=== PATIENT | female | born 1975 | race Caucasian/White ===

== ENCOUNTER → 2018-12-27 | Day surgery (SDC) | payer OTHER ==
[~2018-12-27] MED LIST: ACET325T9 PO; BUPIVAC MPF-EPI 0.5%-1:200000 30 ML VIAL. ONE; DEXAMETHASONE SOD PHOS 4 MG/ML VIAL ONE; ETHI1TAB12 PO; GLYCOPYRROLATE 1 MG/5 ML VIAL. ONE; HYDR-2145 PO; HYDR-3164 PO; HYDROcodone/APAP 5/325MG 1 TAB TABLET PO ONE; HYDROmorphone 2 MG/ML VIAL IV PRN; IBUP200T44 PO; IBUPROFEN 400 MG TABLET. PO PRN; IV RINGERS,LACTATED 1000ML 1,000 ML IV SCH; KETOROLAC 30 MG/ML VIAL. IV ONE; LIDOCAINE 1% PF 2 ML VIAL. ID PRN; LIDOCAINE 2% PF 5 ML VIAL. ONE; MIDAZOLAM HCL/PF 2 MG/2 ML VIAL. ONE; MORPHINE SULFATE 2 MG/ML VIAL. IV PRN; MULT1TAB52 PO; NEOSTIGMINE METHYLSULFATE 5 MG/5 ML SYRINGE. ONE; ONDANSETRON PF 4 MG/2 ML VIAL. IV PRN; ONDANSETRON PF 4 MG/2 ML VIAL. ONE; OXYTOCIN 10 UNIT/ML VIAL. ONE; PROCHLORPERAZINE 10 MG/2 ML VIAL. IV PRN; PROPOFOL 20 ML IV ONE; ROCURONIUM 50 MG/5 ML VIAL. ONE; SCOPOLAMINE 1.5MG PATCH. TD ONE; SEVOFLURANE 61 TO 120 MINUTES. IH ONE; ceFAZolin 2GM PREMIX 2 GM/50 ML BAG IV ONE; diphenhydrAMINE 50 MG/ML VIAL ONE; fentaNYL PF VIAL 100 MCG/2 ML VIAL IV PRN; fentaNYL PF VIAL 100 MCG/2 ML VIAL ONE; miSOPROStol 200 MCG TABLET ONE
[2018-12-27 09:42] LABS: U PREG PATIENT NEGATIVE (NEG)
--- NOTE | 2018-12-27 11:02 | PDOC ---
BRIEF OPERATIVE NOTE Pre-Op Diagnosis AUB Multiparous desires permanent sterilization Post-Op Diagnosis Lap BTL with filshie clips Dx hysteroscopy D and C Failed Novasure ablation Surgeon Kenya It Sales Executive None Anesthesia Type: General Blood Loss 20cc Specimens Obtained EMC Complications None JAYNE MURRIETA MD Dec 27, 2018 11:02
[2018-12-27] MEDS: fentaNYL PF VIAL 100 MCG/2 ML VIAL IV PRN ×2 (11:25→11:34)
[2018-12-27 13:14] VITALS: BP 135/65
--- NOTE | 2018-12-29 09:10 | PATHOLOGY ---
[facility] Accession Number: [id number] . 01 Material submitted: . endometrium - ENDOMETRIAL CURETTING . 01 Clinical history: . AUB . 02 Diagnosis: Endometrial curettings: - Inactive/atrophic endometrium. - Segments of squamous mucosa and focally polypoid segments of endocervical mucosa showing focal microglandular hyperplasia. (JPM:[facility] 12/28/2018) P/12/29/2018 . 02 Comment: There is no evidence of endometrial hyperplasia or malignancy. (JPM:[facility] 12/28/2018) . 02 Electronically signed: . Jeffery Roe MD, Pathologist NPI- [id number] . 01 Gross description: . Received in formalin labeled "Nadya, Farzaneh, endometrial curettings" is soft, mucoid, and hemorrhagic winston-brown tissue measuring 2.1 x 1.5 x 0.2 cm which is entirely submitted in A1. (SDY; 12/27/2018) SYU/SYU . 02 Pathologist provided ICD-10: N93.9 . 02 CPT . 434995 Specimen Comment: A courtesy copy of this report has been sent to Specimen Comment: [phone]. Specimen Comment: Report sent to Performed at: 01 [facility] [address], [place] [id number] MD Jalil Osman MD Phone: [phone] Performed at: 02 [facility] [address] [place], [place] [id number] MD Jeffery Roe MD Phone: [phone]
--- NOTE | 2019-01-02 18:05 | OP ---
DATE OF SURGERY: 12/27/2018 PREOPERATIVE DIAGNOSES: 1. Multiparous, desired permanent sterilization. 2. Abnormal uterine bleeding. POSTOPERATIVE DIAGNOSES: 1. Multiparous, desired permanent sterilization. 2. Abnormal uterine bleeding. PROCEDURE: 1. Laparoscopic bilateral tubal ligation with Filshie clips. 2. Dilatation and curettage. 3. Failed NovaSure ablation. SURGEON: Edu Zambrano M.D. MANAGER OF CASE MANAGEMENT: None. ANESTHESIA: General. ESTIMATED BLOOD LOSS: 30 mL. FLUIDS: Crystalloid. SPECIMENS: Endometrial curettings. COMPLICATIONS: Failed NovaSure ablation. CONDITION: Stable. DESCRIPTION OF PROCEDURE: After risks, benefits, indications, alternatives and expectations discussed in detail with the patient, the patient brought to OR theater, placed in the dorsal lithotomy position in Osvaldo stirrups. After adequate general anesthesia, the patient was prepped and draped in a sterile manner. A sponge stick was placed in the vaginal vault. Attention was then turned to the anterior abdominal wall. An infraumbilical incision was made sharply with a scalpel. Through this, a 5 mm disposable trocar was placed via the Visiport without any complications. Pneumoperitoneum was created. Another incision was made suprapubically where other 8 mm disposable trocar was placed. The patient was placed in Trendelenburg. First, right tube was identified, followed to its fimbriated end. Approximately 1-2 cm from the cornu, Filshie clip was placed without any difficulty. Same procedure was carried out on the opposite side. Pneumoperitoneum was allowed to dissipate after all instruments were removed. The trocar sleeves were removed. The incisions were reapproximated with surgical glue. Attention was then turned to the vaginal part of the procedure after the incisions were infiltrated with 0.5% Marcaine with epinephrine. Sponge stick was removed. Posterior weighted speculum was placed in the vaginal vault. Cervix is identified and grasped with single tooth tenaculum. The cervix and uterine cavity were sounded. The total length was 9 cm, total length of uterine cavity was 6 cm, with a cervical length of 3. Cervix was dilated up to size 8 dilator. Sharp curettage was then performed. Endometrium was placed on Telfa sponge and handed off the operative field. The NovaSure device was then placed, set at 6 cm as uterine length and the width was approximately 2.7. There was some difficulty getting the NovaSure device to open up the past 2.6, which is the minimal distance. Testing for complete air seal was unable to continue with the device we had, so we changed devices, also changed the CO2 cartridge with a new device the same thing occurred secondary to equipment failure, so this part of the procedure was not performed. The hysteroscope was once again placed as it has been placed before the dilatation and curettage. The uterine width was greater than 3 cm. The fan on the NovaSure device was not deploying correctly, that is why air seal was not tight, was never found out. The procedure was then terminated. Vaginal vault was wiped free of any tissue or blood. CO2 ____ was removed. Puncture sites were hemostatic. Posterior weighted speculum was removed. Sponge, needle and instrument counts were correct x 2 per nursing staff. The dressings were put on the abdominal incisions, and the patient went to postop anesthesia recovery in stable condition. EDU ZAMBRANO MD DR: CASSANDRA/val JOB#: [id number] / [id number]
== END ==
LOC: SURG 08:13
PROVIDERS: ATTEND Specialist
DX: Z30.2 Encounter for sterilization (principal); N93.9 Abnormal uterine and vaginal bleeding, unspecified
CPT/HCPCS: 58558; 58671; 81025; 88305; A7015; J0696; J0780; J1100; J1200; J1885; J2001; J2250; J2270; J2405; J2704; J2710; J3010; J3490; J7030; J7120; J2590

== ENCOUNTER 2019-01-23 06:00 | Observation (INO) | payer OTHER ==
[2019-01-23] VITALS (7 sets, daily range): BP systolic 110–137; BP diastolic 66–83
[~2019-01-23] VITALS: Ht 160 cm; Wt 91.6 kg
[~2019-01-23 06:00] MED LIST changes: -BUPIVAC MPF-EPI 0.5%-1:200000 30 ML VIAL. ONE; -DEXAMETHASONE SOD PHOS 4 MG/ML VIAL ONE; -GLYCOPYRROLATE 1 MG/5 ML VIAL. ONE; -HYDROcodone/APAP 5/325MG 1 TAB TABLET PO ONE; -HYDROmorphone 2 MG/ML VIAL IV PRN; -IBUPROFEN 400 MG TABLET. PO PRN; -IV RINGERS,LACTATED 1000ML 1,000 ML IV SCH; -KETOROLAC 30 MG/ML VIAL. IV ONE; -LIDOCAINE 1% PF 2 ML VIAL. ID PRN; -LIDOCAINE 2% PF 5 ML VIAL. ONE; -MIDAZOLAM HCL/PF 2 MG/2 ML VIAL. ONE; -MORPHINE SULFATE 2 MG/ML VIAL. IV PRN; -NEOSTIGMINE METHYLSULFATE 5 MG/5 ML SYRINGE. ONE; -ONDANSETRON PF 4 MG/2 ML VIAL. IV PRN; -ONDANSETRON PF 4 MG/2 ML VIAL. ONE; -OXYTOCIN 10 UNIT/ML VIAL. ONE; -PROCHLORPERAZINE 10 MG/2 ML VIAL. IV PRN; -PROPOFOL 20 ML IV ONE; -ROCURONIUM 50 MG/5 ML VIAL. ONE; -SCOPOLAMINE 1.5MG PATCH. TD ONE; -SEVOFLURANE 61 TO 120 MINUTES. IH ONE; -ceFAZolin 2GM PREMIX 2 GM/50 ML BAG IV ONE; -diphenhydrAMINE 50 MG/ML VIAL ONE; -fentaNYL PF VIAL 100 MCG/2 ML VIAL IV PRN; -fentaNYL PF VIAL 100 MCG/2 ML VIAL ONE; -miSOPROStol 200 MCG TABLET ONE
[2019-01-23] MEDS ORDERED: ESTROGENS, CONJ VAGINAL CREAM 30GM TUBE. ONE (06:25)
[2019-01-23] MEDS ORDERED: BUPIVAC MPF-EPI 0.5%-1:200000 30 ML VIAL. ONE (06:25)
[2019-01-23] MEDS ORDERED: fentaNYL PF VIAL 100 MCG/2 ML VIAL IV PRN (07:00)
[2019-01-23] MEDS ORDERED: IV RINGERS,LACTATED 1000ML 1,000 ML IV SCH (07:00)
[2019-01-23] MEDS ORDERED: PROCHLORPERAZINE 10 MG/2 ML VIAL. IV PRN (07:00)
[2019-01-23] MEDS ORDERED: LIDOCAINE 1% PF 2 ML VIAL. ID PRN (07:00)
[2019-01-23] MEDS ORDERED: ONDANSETRON PF 4 MG/2 ML VIAL. IV PRN ×2 (07:00→11:00)
[2019-01-23] MEDS ORDERED: SCOPOLAMINE 1.5MG PATCH. TD ONE (07:15)
[2019-01-23] MEDS ORDERED: ROCURONIUM 50 MG/5 ML VIAL. ONE ×2 (07:23→09:14)
[2019-01-23] MEDS ORDERED: LIDOCAINE 2% PF 5 ML VIAL. ONE (07:23)
[2019-01-23] MEDS ORDERED: PROPOFOL 20 ML IV ONE (07:23)
[2019-01-23] MEDS ORDERED: DEXAMETHASONE SOD PHOS 4 MG/ML VIAL ONE (07:23)
[2019-01-23] MEDS ORDERED: fentaNYL PF VIAL 100 MCG/2 ML VIAL ONE ×3 (07:23→11:26)
[2019-01-23] MEDS ORDERED: ONDANSETRON PF 4 MG/2 ML VIAL. ONE (07:23)
[2019-01-23] MEDS ORDERED: MIDAZOLAM HCL/PF 2 MG/2 ML VIAL. ONE (07:24)
[2019-01-23 07:28] LABS: U PREG PATIENT NEGATIVE (NEG)
[2019-01-23] MEDS ORDERED: INDIGOTINDISULFONATE SODIUM 40 MG/5 ML AMPUL. IV ONE (07:30)
[2019-01-23] MEDS ORDERED: metroNIDAZOLE 0.75% VAGINAL 1 APP TUBE VG ONE (07:45)
[2019-01-23 07:58] LABS: BASO % 1 % (0-3); EOS # 0.2 x10^3/uL (0.0-0.7); EOS % 2 % (0-3); HEMATOCRIT 37.8 % (36.0-47.0); HEMOGLOBIN 13.1 g/dL (12.0-15.5); LYMPH # 1.9 x10^3/uL (1.0-4.8); LYMPH % 24 % (24-48); MEAN CORPUSCULAR HEMOGLOBIN 29 pg (25-35); MEAN CORPUSCULAR HGB CONC 35 g/dL (31-37); MEAN CORPUSCULAR VOLUME 84 fL (79-100); MONO # 0.6 x10^3/uL (0.0-1.1); MONO % 8 % (0-9); NEUT # 5.1 x10^3uL (1.8-7.7); NEUT % 65 % (31-73); PLATELET COUNT 276 x10^3/uL (140-400); RED BLOOD COUNT 4.51 x10^6/uL (3.50-5.40); RED CELL DISTRIBUTION WIDTH 13.5 % (11.5-14.5); WHITE BLOOD COUNT 7.8 x10^3/uL (4.0-11.0)
[2019-01-23] MEDS ORDERED: NEOSTIGMINE METHYLSULFATE 5 MG/5 ML SYRINGE. ONE (08:40)
[2019-01-23] MEDS ORDERED: GLYCOPYRROLATE 1 MG/5 ML VIAL. ONE (08:41)
[2019-01-23] MEDS ORDERED: diphenhydrAMINE 50 MG/ML VIAL ONE (08:47)
[2019-01-23] MEDS ORDERED: KETOROLAC 30 MG/ML INJ FOR OR. INJ ONE (08:47)
[2019-01-23] MEDS ORDERED: ceFAZolin 2GM PREMIX 2 GM/50 ML BAG IV ONE (09:00)
[2019-01-23] MEDS ORDERED: SEVOFLURANE > 120 MINUTES. IH ONE (09:02)
--- NOTE | 2019-01-23 10:56 | PDOC ---
BRIEF OPERATIVE NOTE Pre-Op Diagnosis AUB Post-Op Diagnosis Same Procedure Performed [facility] BS Surgeon Kenya Hospitality Host None Anesthesia Type: General Blood Loss 150cc Specimens Obtained None Findings Dictated Complications None Operative Note Dictated JAYNE MURRIETA MD Jan 23, 2019 10:56
[2019-01-23] MEDS ORDERED: 0.9 % SODIUM CHLORIDE 10 ML DISP.SYRIN. IV PRN (11:00)
[2019-01-23] MEDS ORDERED: CALCIUM CARBONATE 500 MG TAB.CHEW PO PRN (11:00)
[2019-01-23] MEDS ORDERED: MAG HYDROX/ALUMINUM HYD/SIMETH 30 ML ORAL.SUSP PO PRN (11:00)
[2019-01-23] MEDS ORDERED: NALOXONE 0.4 MG/ML VIAL. IV PRN (11:00)
[2019-01-23] MEDS ORDERED: diphenhydrAMINE 50 MG/ML VIAL IV PRN (11:00)
[2019-01-23] MEDS ORDERED: ceFAZolin SODIUM 1 GM in IV DEXTROSE 5% 50 ML IV SCH (11:00)
[2019-01-23] MEDS ORDERED: oxyCODONE/APAP 5/325 1 TAB TABLET PO PRN (11:00)
[2019-01-23] MEDS ORDERED: diphenhydrAMINE HCL 25 MG CAPSULE PO PRN (11:00)
[2019-01-23] MEDS ORDERED: HYDROmorphone 2 MG/ML VIAL IV PRN (11:00)
[2019-01-23] MEDS ORDERED: DEXTROSE 50% 25 GM / 50ML DISP.SYRIN. IV PRN (11:00)
[2019-01-23] MEDS ORDERED: ZOLPIDEM 5 MG TABLET. PO PRN (11:00)
[2019-01-23] MEDS: fentaNYL PF VIAL 100 MCG/2 ML VIAL IV PRN ×2 (11:29→11:39)
--- NOTE | 2019-01-23 11:31 | OP ---
DATE OF SURGERY: 01/23/2019 PREOPERATIVE DIAGNOSIS: Abnormal uterine bleeding. POSTOPERATIVE DIAGNOSIS: Abnormal uterine bleeding. PROCEDURE: Laparoscopic assisted vaginal hysterectomy, bilateral salpingectomy. Intraoperative consults by Dr. Bowser to help with retrieval of Filshie clip. ESTIMATED BLOOD LOSS: 150 mL. FLUIDS: Crystalloid. SPECIMENS: Uterus, bilateral oviducts with bilateral tissue clips. COMPLICATIONS: None. CONDITION: Stable. DESCRIPTION OF PROCEDURE: After risks, benefits, indication, alternatives, and expectations discussed in detail with the patient, the patient was brought to the OR theater, placed in dorsal lithotomy position in Osvaldo stirru. Uterine manipulator was placed transvaginally in the cervical os. Attention was then turned to the anterior abdominal wall. A small vertical infraumbilical incision was made sharply with a scalpel. Through this via the Visiport, a 5 mm disposable trocar was placed. Two lateral trocars on the left, 5 mm trocars were also placed using direct visualization. Attention was first turned with the right tube. Prior to this, adhesions of sigmoid colon and to the dome of the bladder were taken down. The right tube was taken down to its cornu, transected through the mesosalpinx through the round ligament to the broad ligament in the Mackenrodt ligament, good hemostasis was assured. The left tube at this point was avulsed from its uterus attachment. Same procedure was carried out on the right side. Attention was then turned to the vaginal aspect of the procedure. Cervix was infiltrated with 0.5% Marcaine with epinephrine, circumscribed with a scalpel. Posterior cul-de-sac was entered sharply with Fontenot scissors. Anterior cul-de-sac was entered in usual fashion with reflecting the bladder, dry Ray-Cash and entering the anterior cul-de-sac sharply with Metzenbaum scissors. Curved [place] was placed in the space to displace the bladder superior and a long weighted speculum was placed in the posterior cul-de-sac to displace the rectum inferior. The remaining attachments of the uterus were taken down with clamp, cut, tie manner and the uterus handed off the operative field. The cuff was reapproximated with 0 Vicryl pop-offs in an interrupted fashion. On going to the abdominal part of the procedure, a pneumoperitoneum was once again created. Posterior cul-de-sac was irrigated copiously with warm normal saline. Good hemostasis was assured. The left tube Filshie clip was difficult to find, but with the assistant news director of Dr. Bowser was retrieved and brought out through 11-mm port that was placed in the 1-5 mm trocar sites on the left of the umbilicus. Good hemostasis was assured. Ureters peristalsing bilaterally. Pneumoperitoneum was allowed to dissipate after all laparoscopic instruments were removed, all trocar sleeves were removed. The incisions were repaired with Dermabond. Sponge, needle and instrument counts were correct x 2 per nursing staff. JAYNE MURRIETA MD DR: CASSANDRA/val JOB#: [id number] / [id number]
[2019-01-23] MEDS ORDERED: OPIUM/BELLADONNA 30/16.2MG SUPP.RECT. PR PRN (13:45)
[2019-01-23] MEDS: KETOROLAC 30 MG/ML VIAL. IV PRN (13:47)
[2019-01-23] MEDS: HYDROcodone/APAP 5/325MG 1 TAB TABLET PO PRN ×2 (13:48→18:55)
[2019-01-23] MEDS: ceFAZolin SODIUM IV Push 1 GM VIAL. IVP SCH (18:55)
[2019-01-23 19:10] LABS: HEMATOCRIT 33.8 % (36.0-47.0); HEMOGLOBIN 11.6 g/dL (12.0-15.5); RED BLOOD COUNT 3.97 x10^6/uL (3.50-5.40); RED CELL DISTRIBUTION WIDTH 13.4 % (11.5-14.5); WHITE BLOOD COUNT 9.8 x10^3/uL (4.0-11.0)
[2019-01-23] MEDS: hydroCHLOROthiazide 25 MG TABLET PO SCH (20:28)
[2019-01-23] MEDS ORDERED: DOCUSATE SODIUM 100 MG CAPSULE. PO SCH (21:00)
[2019-01-23] MEDS: SENNOSIDES/DOCUSATE 8.6/50MG TABLET. PO SCH (21:00)
[2019-01-24] MEDS: HYDROcodone/APAP 5/325MG 1 TAB TABLET PO PRN ×2 (00:55→13:03)
[2019-01-24] MEDS: ceFAZolin SODIUM IV Push 1 GM VIAL. IVP SCH ×2 (00:55→08:39)
[2019-01-24 01:03] VITALS: BP 118/70
[2019-01-24 03:49] LABS: BASO % 0 % (0-3); EOS % 0 % (0-3); HEMOGLOBIN 10.9 g/dL (12.0-15.5); LYMPH # 1.8 x10^3/uL (1.0-4.8); LYMPH % 17 % (24-48); MEAN CORPUSCULAR HEMOGLOBIN 30 pg (25-35); MEAN CORPUSCULAR HGB CONC 35 g/dL (31-37); MEAN CORPUSCULAR VOLUME 84 fL (79-100); MONO # 0.7 x10^3/uL (0.0-1.1); MONO % 7 % (0-9); NEUT # 7.9 x10^3uL (1.8-7.7); NEUT % 76 % (31-73); PLATELET COUNT 215 x10^3/uL (140-400); RED BLOOD COUNT 3.68 x10^6/uL (3.50-5.40); RED CELL DISTRIBUTION WIDTH 13.6 % (11.5-14.5); WHITE BLOOD COUNT 10.4 x10^3/uL (4.0-11.0)
[2019-01-24 04:04] LABS: CALCIUM 8.4 mg/dL (8.5-10.1); CREATININE 0.8 mg/dL (0.6-1.0); GFR 77.6; POTASSIUM 3.5 mmol/L (3.5-5.1)
[2019-01-24 07:00] VITALS: BP 118/70
[2019-01-24] MEDS: hydroCHLOROthiazide 25 MG TABLET PO SCH (08:38)
[2019-01-24] MEDS: KETOROLAC 30 MG/ML VIAL. IV PRN (08:49)
[2019-01-24] MEDS: SENNOSIDES/DOCUSATE 8.6/50MG TABLET. PO SCH (09:00)
[2019-01-24] MEDS: SIMETHICONE 80 MG TAB.CHEW PO PRN ×2 (09:06→13:02)
[2019-01-24 10:30] VITALS: BP 116/76
[2019-01-24] MEDS ORDERED: MAGNESIUM HYDROXIDE 2,400 MG/30 ML ORAL.SUSP. PO PRN (13:15)
[2019-01-24] MEDS ORDERED: NAPR-514 PO (14:06)
[2019-01-24] MEDS ORDERED: HYDR-3164 PO (14:06)
--- NOTE | 2019-01-24 14:09 | PDOC ---
Provider Note Provider Note pood 1 Doing well No complaints Incision CDI DC home JAYNE MURRIETA MD Jan 24, 2019 14:09
[2019-01-24 14:45] VITALS: BP 115/73
--- NOTE | 2019-01-24 15:27 | DS ---
DATE OF DISCHARGE: 01/24/2019 ADMITTING DIAGNOSIS: Abnormal uterine bleeding. DISCHARGE DIAGNOSIS: Abnormal uterine bleeding. PROCEDURE: Laparoscopic assisted vaginal hysterectomy with bilateral salpingectomy with intraoperative consult by Dr. Robel Bowser for retrieval of the Filshie clip. HOSPITAL COURSE: The patient's hospital course was unremarkable. Initially, there were some problems with getting her pain under control. She was switched to Toradol and Vicodin since she had itching allergy to PERCOCET. On postop day #1, she was stable. She is tolerating regular diet, bowel and bladder was functioning. She is ambulating in the halls without assistance. Her postop H and H was 10.9 and 31, and that is down from 11.6 and 33. Incisions were clean, dry and intact without any signs of infection. DISCHARGE MEDICATIONS: The patient was discharged home with 35 K[place]heloe and 60 Naproxen. DISCHARGE INSTRUCTIONS: The patient was given routine discharge instructions. The patient is to follow up with me in a week. JAYNE MURRIETA MD DR: CASSANDRA/val JOB#: [id number] / [id number]
--- NOTE | 2019-01-24 18:06 | PATHOLOGY ---
[facility] Accession Number: [id number] . 01 Material submitted: . uterus - CERVIX, UTERUS, RIGHT TUBE WITH CLIP, LEFT TUBE, CLIP . 01 Clinical history: . Fibroids. . 02 Diagnosis: Uterus and detached bilateral fallopian tubes, hysterectomy and bilateral salpingectomy: - Chronic cervicitis with focal squamous metaplasia. - Nabothian cysts, small. - Inactive/atrophic endometrium. - Adenomyosis, uterine corpus, subbasal, focal. - Congestion of bilateral fallopian tubes. - Small paratubal cysts. (JPM:[facility] 01/24/2019) [facility] . 02 Comment: There is no evidence of malignancy. (JPM:[facility] 01/24/2019) . 02 Electronically signed: . Jeffery Roe MD, Pathologist NPI- [id number] . 01 Gross description: . Received in formalin labeled "Nadya, Farzaneh, cervix, uterus, right tube with clip, left tube, clip" is a hysterectomy specimen with detached fallopian tubes. The uterus weighs 101 g and measures 10.5 cm from fundus to cervix, 5.5 cm from cornu to cornu, and 5.0 cm from anterior to posterior. The serosa is red-pink with focal hemorrhagic areas and a 2.0 x 1.3 cm surgical defect in the posterior aspect. There is a remnant stump of right fallopian tube attached to the uterus, measuring 2.0 cm in length and 0.6 cm in diameter. The fallopian tube has a metallic clip present, possibly consistent with a sterilization clip. The ectocervix is pink-winston and glistening with a 0.8 cm slitlike cervical os. The uterus is opened to reveal a 5.1 x 2.6 cm endometrial cavity and a 2.3 x 0.9 cm endocervical canal. Upon sectioning, the average endometrial thickness is 0.2 cm and the average myometrial thickness is 2.0 cm. No leiomyomata are identified. The first detached fimbriated fallopian tube does not have a clip present, and measures 4.0 cm in length and 0.5 cm in diameter. The second fallopian tube measures 4.5 cm in length and 0.5 cm in diameter, has a metallic clip present, and does not have a definitive fimbria. Upon sectioning, the cut surfaces display pinpoint lumens. Basket Grader sections of the specimen are submitted as follows: A1 12:00 cervix A2 6:00 cervix A3 outside sales representative serosal defect A4 outside sales representative anterior endomyometrium A5 outside sales representative posterior endomyometrium A6 entire stump of right fallopian tube attached to uterus A7 entire detached fallopian tube without clip A8 entire detached fallopian tube with clip ([facility] 01/23/2019) SYC/SYC . 02 Pathologist provided ICD-10: N72, N88.8, N80.0, N83.8 . 02 CPT . 694178 Specimen Comment: A courtesy copy of this report has been sent to Specimen Comment: [phone], . Specimen Comment: Report sent to / DR DOINS Performed at: 01 [facility] [address], [place] [id number] MD Jalil Osman MD Phone: [phone] Performed at: 02 [facility] [address] [place], [place] [id number] MD Jeffery Roe MD Phone: [phone]
== END 2019-01-24 14:10 | disposition home or self-care (01) ==
LOC: SURG 06:00 → 3 NORTH 11:32
PROVIDERS: ADMIT Specialist; ATTEND Specialist
DX: N93.9 Abnormal uterine and vaginal bleeding, unspecified (principal); Z98.890 Other specified postprocedural states
CPT/HCPCS: 36415; 58550; 80048; 81025; 85025; 85027; 86850; 86900; 86901; 88307; 96374; 96375; 96376; A7015; G0378; G0379; J0690; J0696; J1100; J1170; J1200; J1885; J2001; J2250; J2704; J2710; J3010; J3490; J7030; J7120; J2405